=== PATIENT | male | born 1990 ===

== ENCOUNTER 2018-11-14 17:17 | Emergency (ER) | payer OTHER ==
--- NOTE | 2018-11-14 19:16 | C.PDOC ---
History Of Present Illness 28 year old male presents to the ED c/o left pectoralis chets pain for the last 2 days. Patient reports his pain is digitally and positionally reproducible. 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 Patient denies headache, visual changes, nausea, vomit, rash, heavy lifting, injury, fall, trauma. Time Seen by Provider: 11/14/18 19:07 Chief Complaint (Nursing): Chest Pain History Per: Patient History/Exam Limitations: no limitations Onset/Duration Of Symptoms: Days (2) Current Symptoms Are (Timing): Still Present Quality: "Pain" Recent travel outside of the [place]: No Additional History Per: Patient Past Medical History Reviewed: Historical Data, Nursing Documentation, Vital Signs Vital Signs: Last Vital Signs Temp 98.1 F 11/14/18 17:43 Pulse 76 11/14/18 17:43 Resp 16 11/14/18 17:43 BP 144/84 11/14/18 17:43 Pulse Ox 98 11/14/18 17:43 - Medical History PMH: No Chronic Diseases Denies: Chronic Kidney Disease Surgical History: No Surg Hx Family History: States: Unknown Family Hx - Social History Hx Alcohol Use: Yes Hx Substance Use: No Review Of Systems Constitutional: Negative for: Fever, Chills Cardiovascular: Positive for: Chest Pain. Negative for: Palpitations Respiratory: Negative for: Shortness of Breath Gastrointestinal: Negative for: Nausea, Vomiting, Abdominal Pain Skin: Negative for: Rash Neurological: Negative for: Weakness, Numbness, Headache Physical Exam - Physical Exam Appears: Non-toxic, No Acute Distress Skin: Normal Color, Warm, Dry, No Rash Head: Atraumatic, Normacephalic Eye(s): bilateral: Normal Inspection Neck: Normal ROM, Supple Chest: Symmetrical, Tenderness (left pectoralis area mid clavicular line at T2 area) Cardiovascular: Rhythm Regular Respiratory: Normal Breath Sounds, No Rales, No Rhonchi, No Wheezing Gastrointestinal/Abdominal: Soft, No Tenderness, No Guarding, No Rebound Extremity: Normal ROM, No Tenderness, No Swelling Neurological/Psych: Oriented x3, Normal Speech, Normal Cognition Gait: Steady ED Course And Treatment ECG: Interpreted By Me ECG Rhythm: Sinus Rhythm ECG Interpretation: Normal Rate From EC O2 Sat by Pulse Oximetry: 98 (On RA) Pulse Ox Interpretation: Normal Medical Decision Making Medical Decision Making: digitally and positionally reproducable L upper pectoralis area clear lungs normal EKG costochondritis. Disposition Doctor Will See Patient In The: Office Counseled Patient/Family Regarding: Studies Performed, Diagnosis - Disposition Referrals: [facility] [Outside] [facility] [Outside] [facility] [Outside] [facility] [Outside] Disposition: HOME/ ROUTINE Disposition Time: 19:16 Condition: GOOD Additional Instructions: ibuprofeno 400-600 mg cada 6 horas brad necessario Sigue en [facility] brad necessario. Instructions: Costochondritis Forms: [employer] (Malaysian) Print Language: ARMENIAN - Clinical Impression Clinical Impression: Chest wall discomfort - Scribe Statement The provider has reviewed the documentation as recorded by the Scribe Davide Miller All medical record entries made by the Scribe were at my direction and personally dictated by me. I have reviewed the chart and agree that the record accurately reflects my personal performance of the history, physical exam, medical decision making, and the department course for this patient. I have also personally directed, reviewed, and agree with the discharge instructions and disposition.
[2018-11-14 19:27] VITALS: BP 124/79; PULSE 82; RESP 18; TEMP 98.6
[2018-11-15 00:59] VITALS: O2SAT 98
--- NOTE | 2018-11-16 09:17 | CARD ---
APPROVED REPORT Date of service: 11/14/2018 EKG Measurement Heart [id number] <Conclusion> Normal sinus rhythm with sinus arrhythmia Normal ECG
== END 2018-11-14 19:26 | disposition home or self-care (01) ==
LOC: C.ER 17:17
DX: R07.89 Other chest pain (principal)

== ENCOUNTER 2018-11-17 08:37 | Emergency (ER) | payer OTHER ==
[2018-11-17 09:03] VITALS: BMI 21.7
[2018-11-17] MEDS ORDERED: Iohexol 240 (50 ml) PO STA (09:52)
[2018-11-17] MEDS ORDERED: Sodium Chloride 0.9% 1,000 ML IV STA (09:52)
[2018-11-17 10:09] LABS: BASO % 0.4 % (0.0-2.0); EOS % 0.2 % (0.0-4.0); HEMOGLOBIN 15.8 g/dL (12.0-18.0); LYMPH # 1.9 K/uL (1.0-4.3); MEAN CELL VOLUME 97.7 fL (80.0-94.0); MEAN CORPUSCULAR HEMOGLOBIN 32.8 pg (27.0-31.0); MEAN CORPUSCULAR HGB CONC 33.6 g/dL (33.0-37.0); MEAN PLATELET VOLUME 8.4 fL (7.2-11.7); MONO # 0.6 K/uL (0.0-0.8); MONO % 7.9 % (0.0-10.0); NEUT # 5.6 K/uL (1.8-7.0); NEUT % 68.5 % (50.0-75.0); NRBC % 0.1 % (0.0-2.0); RBC 4.81 Mil/uL (4.40-5.90); RED CELL DISTRIBUTION WIDTH 12.4 % (11.5-14.5); WHITE BLOOD COUNT 8.1 K/uL (4.8-10.8)
[2018-11-17] MEDS ORDERED: Iohexol 240 (50 ml) ONE (10:10)
[2018-11-17] MEDS ORDERED: Sodium Chloride 0.9% 1,000 ML ONE (10:10)
--- NOTE | 2018-11-17 10:25 | C.PDOC ---
History Of Present Illness 28 y/o male presents to the ED complaining of generalized abdominal pain that began 2 days ago. Patient states the pain is severe, and he has been unable to sleep the last two nights secondary to pain. No associated diarrhea. He reports one episode of vomiting today and noticed some blood-tinged vomitus, prompting him to come to the ED. Otherwise patient denies any fevers, chills, cold sweats, urinary complaints, or bloody stool. He denies any alcohol use or drug abuse. Patient cannot recall any possible food consumption contributing to symptoms. No known sick contacts. Time Seen by Provider: 11/17/18 09:12 Chief Complaint (Nursing): Abdominal Pain History Per: Patient History/Exam Limitations: no limitations Onset/Duration Of Symptoms: Days (x3) Current Symptoms Are (Timing): Still Present Severity: Moderate Location Of Pain/Discomfort: Diffuse Quality Of Discomfort: "Pain" Associated Symptoms: Nausea, Vomiting Exacerbating Factors: None Past Medical History Reviewed: Historical Data, Nursing Documentation, Vital Signs Vital Signs: Last Vital Signs Temp 98.4 F 11/17/18 09:04 Pulse 67 11/17/18 09:04 Resp 17 11/17/18 09:04 BP 129/84 11/17/18 09:04 Pulse Ox 97 11/17/18 09:04 - Medical History PMH: No Chronic Diseases Denies: Chronic Kidney Disease Surgical History: No Surg Hx Family History: States: Unknown Family Hx - Social History Hx Tobacco Use: Yes Hx Alcohol Use: Yes Hx Substance Use: Yes (marijuana) - Immunization History Hx Tetanus Toxoid Vaccination: No Hx Influenza Vaccination: No Hx Pneumococcal Vaccination: No Review Of Systems Except As Marked, All Systems Reviewed And Found Negative. Constitutional: Negative for: Fever, Chills, Sweats Cardiovascular: Negative for: Light Headedness Respiratory: Negative for: Shortness of Breath Gastrointestinal: Positive for: Vomiting (x1), Abdominal Pain (generalized), Hematemesis. Negative for: Diarrhea, Melena, Hematochezia Genitourinary: Negative for: Dysuria, Frequency, Hematuria Skin: Negative for: Rash Neurological: Negative for: Weakness, Dizziness Physical Exam - Physical Exam Appears: Non-toxic, In Acute Distress (moderate painful distress), Other (Appears uncomfortable) Skin: Warm, Dry Head: Atraumatic, Normacephalic Eye(s): bilateral: Normal Inspection, PERRL, EOMI Neck: Normal ROM Chest: Symmetrical Cardiovascular: Rhythm Regular, No Murmur Respiratory: Normal Breath Sounds, No Accessory Muscle Use Gastrointestinal/Abdominal: Soft, Tenderness (tender diffusely throughout abdomen), No Guarding, No Rebound Extremity: Bilateral: Atraumatic, Normal Color And Temperature, Normal ROM Neurological/Psych: Oriented x3, Normal Speech, Normal Cognition ED Course And Treatment - Laboratory Results Result Diagrams: 11/17/18 09:55 11/17/18 10:23 O2 Sat by Pulse Oximetry: 97 (RA) Pulse Ox Interpretation: Normal - CT Scan/US CT Abd/Pelvis Other Rad Studies (CT/US): Read By Radiologist, Radiology Report Reviewed CT/US Interpretation: Accession No. : [id number]. Patient Name / ID : BETSY BOUCHER / [id number]. Exam Date : 11/17/2018 12:17:09 ( Approved ). Study Comment : Sex / Age : M / 28Y. Creator : Eve Fernandez. Dictator : Gretchen Anthony MD. Turning Sander Operator : Rehabilitation Physician : Gretchen Anthony MD. Approver2 : Report Date : 11/17/2018 12:23:49. My Comment : . PROCEDURE: CT Abdomen and Pelvis with oral and IV contrast. HISTORY: generalized abdominal pain. COMPARISON: None available. TECHNIQUE: Contiguous axial images of the abdomen and pelvis. Oral and IV contrast was administered. Coronal and Sagittal reformats generated and reviewed. Contrast dose: 100 mL Omnipaque 350 IV. Radiation dose: Total exam DLP = 298.44 mGy-cm. This CT exam was performed using one or more of the following dose reduction techniques: Automated exposure control, adjustment of the mA and/or kV according to patient size, and/or use of iterative reconstruction technique. FINDINGS: LOWER THORAX: No visible consolidation, pleural effusion, or pneumothorax. LIVER: Unremarkable. GALLBLADDER AND BILE DUCTS: Unremarkable. PANCREAS: Unremarkable. SPLEEN: Unremarkable. ADRENALS: Unremarkable. KIDNEYS AND URETERS: The kidneys enhance symmetrically. No hydronephrosis or obstructing renal calculus. BLADDER: The urinary bladder appears unremarkable. REPRODUCTIVE: Unremarkable. APPENDIX: The appendix appears within normal limits of caliber. No secondary signs of acute appendicitis. BOWEL: The stomach is nondistended. The bowel loops appear within normal limits of caliber without evidence of intestinal obstruction. PERITONEUM: No significant free fluid. No definite free air. LYMPH NODES: No bulky lymphadenopathy identified. VASCULATURE: No aortic aneurysm. No atherosclerotic calcification or mural plaque present. BONES: No acute osseous abnormality is detected. OTHER FINDINGS: None. IMPRESSION: No acute findings identified. Progress Note: Blood work and urine sent to the lab. Administered IV fluids and 40 mg IV protonix. Pending CT Abdomen/Pelvis with PO & IV contrast. Labs reviewed, blood work is grossly normal. U-tox is (+) for cannabinoids. Imaging reviewed, CT is negative for acute abdominal pathology. All findings discussed with patient in detail. Patient feels better, tolerates po and is stable to be d/c home with PMD follow up. Disposition - Disposition Referrals: [facility] [Outside] Disposition: HOME/ ROUTINE Disposition Time: 14:29 Condition: STABLE Additional Instructions: Follow up with PMD within 1-2 days. Return to ED if feel worse. Prescriptions: Omeprazole 40 mg PO DAILY #30 capsule. Famotidine [Pepcid] 20 mg PO BID #20 tab Instructions: Acute Abdomen (Belly Pain) Forms: [employer] (Hungarian) - Clinical Impression Clinical Impression: Abdominal pain - PA / COACH DRIVER / Resident Statement MD/DO has reviewed & agrees with the documentation as recorded. - Scribe Statement The provider has reviewed the documentation as recorded by the Ramin Rivera All medical record entries made by the Hasmukhibe were at my direction and personally dictated by me. I have reviewed the chart and agree that the record accurately reflects my personal performance of the history, physical exam, medical decision making, and the department course for this patient. I have also personally directed, reviewed, and agree with the discharge instructions and disposition.
[2018-11-17 10:33] LABS: ALB/GLOB RATIO 1.8 (1.0-2.1); ALBUMIN 4.7 g/dL (3.5-5.0); ALT/SGPT 13 U/L (21-72); AMYLASE 86 U/L (30-110); AST/SGOT 29 U/L (17-59); BLOOD UREA NITROGEN 12 mg/dL (9-20); CALCIUM 9.3 mg/dl (8.6-10.4); GFR NON-AFRICAN AMERICAN > 60
[2018-11-17 10:36] LABS: SQUAMOUS EPITHIAL < 1 /hpf (0-5); URINE BACTERIA RARE (<OCC); URINE BILIRUBIN NEGATIVE (NEGATIVE); URINE BLOOD NEGATIVE (NEGATIVE); URINE CLARITY Hazy (Clear); URINE COLOR Amber (YELLOW); URINE GLUCOSE (UA) NORMAL (Normal); URINE LEUKOCYTE ESTERASE NEG Leu/uL (Negative); URINE PROTEIN 1+ mg/dL (NEGATIVE); URINE UROBILINOGEN NORMAL mg/dL (0.2-1.0)
[2018-11-17 10:45] LABS: BENZODIAZEPINES, UR NEGATIVE (NEGATIVE); OPIATES, UR NEGATIVE (NEGATIVE); PHENCYCLIDINE, UR NEGATIVE (NEGATIVE)
[2018-11-17 11:26] LABS: BARBITURATES, UR NEGATIVE (NEGATIVE)
--- NOTE | 2018-11-17 12:46 | CT ---
PROCEDURE: CT Abdomen and Pelvis with oral and IV contrast. HISTORY: generalized abdominal pain COMPARISON: None available TECHNIQUE: Contiguous axial images of the abdomen and pelvis. Oral and IV contrast was administered. Coronal and Sagittal reformats generated and reviewed. Contrast dose: 100 mL Omnipaque 350 IV Radiation dose: Total exam DLP = 298.44 mGy-cm. This CT exam was performed using one or more of the following dose reduction techniques: Automated exposure control, adjustment of the mA and/or kV according to patient size, and/or use of iterative reconstruction technique. FINDINGS: LOWER THORAX: No visible consolidation, pleural effusion, or pneumothorax. LIVER: Unremarkable. GALLBLADDER AND BILE DUCTS: Unremarkable. PANCREAS: Unremarkable. SPLEEN: Unremarkable. ADRENALS: Unremarkable. KIDNEYS AND URETERS: The kidneys enhance symmetrically. No hydronephrosis or obstructing renal calculus. BLADDER: The urinary bladder appears unremarkable. REPRODUCTIVE: Unremarkable. APPENDIX: The appendix appears within normal limits of caliber. No secondary signs of acute appendicitis. BOWEL: The stomach is nondistended. The bowel loops appear within normal limits of caliber without evidence of intestinal obstruction. PERITONEUM: No significant free fluid. No definite free air. LYMPH NODES: No bulky lymphadenopathy identified. VASCULATURE: No aortic aneurysm. No atherosclerotic calcification or mural plaque present. BONES: No acute osseous abnormality is detected. OTHER FINDINGS: None. IMPRESSION: No acute findings identified.
[2018-11-17 15:17] VITALS: BP 123/83; PULSE 74; RESP 18; TEMP 98.2
[2018-11-17 17:50] VITALS: O2SAT 97
== END 2018-11-17 15:18 | disposition home or self-care (01) ==
LOC: C.ER 08:37
DX: R10.84 Generalized abdominal pain (principal)
CPT/HCPCS: 74177; 80053; 80320; 80324; 80345; 80346; 80349; 80353; 80358; 80361; 81001; 82150; 83735; 83992; 85025; 96361; 96374; 99285; C9113; J7030; Q9966